=== PATIENT | male | born 1945 | race Caucasian/White ===

== ENCOUNTER 2017-12-30 15:02 | Inpatient (IN) | payer OTHER ==
[2017-12-30 16:35] LABS: ABNORMAL IP MESSAGE 1; HEMATOCRIT 26.2 % (42.0-52.0); HEMOGLOBIN 8.7 g/dl (14.0-18.0); MEAN CORPUSCULAR HEMOGLOBIN 31.9 pg (29.0-33.0); MEAN CORPUSCULAR HGB CONC 33.2 g/dl (32.0-37.0); POSITIVE DIFF @See below; RED BLOOD COUNT 2.73 10^6/ul (4.70-6.10)
[2017-12-30 16:35] LABS: WHITE BLOOD COUNT 13.3 10^3/ul (4.8-10.8)
[2017-12-30 16:41] LABS: ADD MAN DIFF? YES; PLATELET COUNT 12 10^3/UL (140-415)
[2017-12-30] MEDS: CEFEPIME 2GM/50 ML (PMX) 50 ML IVPB (16:41)
[2017-12-30 16:42] LABS: PATH REVIEW? YES
[2017-12-30] MEDS: ACETAMINOPHEN 325 MG TAB PO (16:42)
[2017-12-30] MEDS: SODIUM CHLORIDE 0.9% 1L BAG IV* (16:42)
[2017-12-30 16:52] LABS: ALANINE AMINOTRANSFERASE 73 IU/L (13-69); ALBUMIN 2.6 g/dl (3.3-4.9); ALBUMIN/GLOBULIN RATIO 0.66; ALKALINE PHOSPHATASE 249 IU/L (42-121); ANION GAP 15 (8-16); ASPARTATE AMINO TRANSFERASE 73 IU/L (15-46); BILIRUBIN,INDIRECT 1.1 mg/dl (0-1.1); BILIRUBIN,TOTAL 1.3 mg/dl (0.2-1.3); BLOOD UREA NITROGEN 18 mg/dl (7-20); CALCIUM 8.4 mg/dl (8.4-10.2); CARBON DIOXIDE 28 mmol/L (21-31); CHLORIDE 97 mmol/L (97-110); CREATININE 0.56 mg/dl (0.61-1.24); GLUCOSE 102 mg/dl (70-220); SODIUM 136 mmol/L (135-144); TOTAL PROTEIN 6.5 g/dl (6.1-8.1)
[2017-12-30 16:54] LABS: PROTIME 14.4 Sec (11.9-14.9); PT RATIO 1.1
[2017-12-30 16:55] LABS: PARTIAL THROMBOPLASTIN TIME 31.2 Sec (25.0-35.0)
[2017-12-30 17:03] LABS: TROPONIN-I < 0.012 ng/ml (0.000-0.120)
[2017-12-30] MEDS: VANCOMYCIN 1 GM (PMX) 250 ML IVPB (17:03)
[2017-12-30 17:14] LABS: LACTIC ACID 3.7 mmol/L (0.5-2.0)
[2017-12-30 17:19] LABS: ANISOCYTOSIS 1+ (0-0); BAND NEUTROPHILS #M 3.7 10^3/ul (0.0-0.6); BAND NEUTROPHILS % (M) 28 % (0-4); BASOPHIL #M 0.2 10^3/ul (0.0-0.0); BASOPHILS % (M) 2 % (0-2); EOSINOPHILS % (M) 2 % (0-7); MONOCYTE #M 0.5 10^3/ul (0.3-0.9); MONOCYTES % (M) 4 % (0-11); PLATELET ESTIMATE SIG DECREASED; POIKILOCYTOSIS 3+ (0-0); SEGMENTED NEUTROPHILS (M) % 64 % (39-77); SMUDGE%M 8 % (0-0)
[2017-12-30] MEDS ORDERED: ONDANSETRON 4 MG INJ IV (18:00)
[2017-12-30] MEDS ORDERED: ACETAMINOPHEN 325 MG TAB PO ×2 (18:00→20:00)
[2017-12-30] MEDS: SOD CHLORIDE 0.9% 1,000 ML IV ×2 (18:39→20:09)
[2017-12-30] MEDS: NORepinephrine 8MG/250 ML (PMX 250 ML IV (19:25)
[2017-12-30] MEDS ORDERED: DOCUSATE SODIUM 100 MG CAP PO (20:00)
[2017-12-30] MEDS ORDERED: morphine 2 MG INJ IV (20:00)
[2017-12-30] MEDS ORDERED: VANCOMYCIN IV PER PHARMACY XX (20:00)
[2017-12-30] MEDS ORDERED: HYDROCODONE/APAP (5/325) TAB PO (20:00)
[2017-12-30] MEDS: HYDROmorphONE 2 MG/ML SYG IV (20:37)
[2017-12-30] MEDS ORDERED: NORepinephrine 8MG/250 ML (PMX 250 ML IV (21:30)
[2017-12-30 23:45] LABS: LACTIC ACID 1.4 mmol/L (0.5-2.0)
[2017-12-31] MEDS: PIPER-TAZO 3.375 GM IV (PMX) 100 ML IVPB ×4 (00:13→18:37)
[2017-12-31] MEDS: SOD CHLORIDE 0.9% 1,000 ML IV ×2 (05:21→17:06)
[2017-12-31] MEDS: VANCOMYCIN 500MG/NS (PMX) 100 ML IVPB ×2 (05:22→17:24)
[2017-12-31 06:34] LABS: ABNORMAL IP MESSAGE 1; HEMATOCRIT 22.7 % (42.0-52.0); HEMOGLOBIN 7.3 g/dl (14.0-18.0); MEAN CORPUSCULAR HEMOGLOBIN 31.2 pg (29.0-33.0); MEAN CORPUSCULAR HGB CONC 32.2 g/dl (32.0-37.0); MEAN PLATELET VOLUME 10.5 fl (7.4-10.4); POSITIVE DIFF @See below; RED BLOOD COUNT 2.34 10^6/ul (4.70-6.10); RED CELL DISTRIBUTION WIDTH 17.9 % (11.5-14.5)
[2017-12-31 06:34] LABS: WHITE BLOOD COUNT 10.6 10^3/ul (4.8-10.8)
[2017-12-31 06:49] LABS: LACTIC ACID 1.5 mmol/L (0.5-2.0)
[2017-12-31 06:55] LABS: PLATELET COUNT 3 10^3/UL (140-415)
[2017-12-31 06:56] LABS: ADD MAN DIFF? YES
[2017-12-31 07:09] LABS: ANION GAP 11 (8-16); BLOOD UREA NITROGEN 14 mg/dl (7-20); CALCIUM 7.3 mg/dl (8.4-10.2); CARBON DIOXIDE 27 mmol/L (21-31); CHLORIDE 105 mmol/L (97-110); CREATININE 0.48 mg/dl (0.61-1.24); GLUCOSE 81 mg/dl (70-220); PHOSPHORUS 3.6 mg/dl (2.5-4.9); POTASSIUM 3.8 mmol/L (3.5-5.1); SODIUM 139 mmol/L (135-144)
[2017-12-31 08:52] LABS: HEMOGLOBIN A1C 5.7 % (0-5.9)
[2017-12-31 10:07] LABS: ANISOCYTOSIS 1+ (0-0); BAND NEUTROPHILS #M 3.7 10^3/ul (0.0-0.6); BAND NEUTROPHILS % (M) 35 % (0-4); LYMPHOCYTES #M 0.2 10^3/ul (0.8-2.9); LYMPHOCYTES % (M) 2 % (15-51); MONOCYTE #M 0.3 10^3/ul (0.3-0.9); MONOCYTES % (M) 3 % (0-11); PLATELET ESTIMATE SIG DECREASED; POLYCHROMASIA 2+ (0-0); SEG NEUT #M 6.8 10^3/ul (1.6-7.5); SEGMENTED NEUTROPHILS (M) % 60 % (39-77)
[2017-12-31 13:56] LABS: IMMEDIATE SPIN CROSSMATCH 1 4
[2017-12-31] MEDS: PANTOPRAZOLE IV 80 MG in SOD CHLORIDE 0.9% 100 ML IV ×3 (14:12→19:43)
[2017-12-31] MEDS: PROMETHAZINE/CODEINE 5ML CUP PO (18:36)
[2018-01-01] MEDS: PANTOPRAZOLE IV 80 MG in SOD CHLORIDE 0.9% 100 ML IV (00:30)
[2018-01-01] MEDS: SOD CHLORIDE 0.9% 1,000 ML IV ×2 (01:01→06:27)
[2018-01-01] MEDS: PIPER-TAZO 3.375 GM IV (PMX) 100 ML IVPB ×4 (05:00→17:27)
[2018-01-01 05:16] LABS: WHITE BLOOD COUNT 9.5 10^3/ul (4.8-10.8)
[2018-01-01 05:16] LABS: ABNORMAL IP MESSAGE 1; HEMATOCRIT 25.7 % (42.0-52.0); HEMOGLOBIN 8.6 g/dl (14.0-18.0); MEAN CORPUSCULAR HEMOGLOBIN 31.3 pg (29.0-33.0); MEAN CORPUSCULAR HGB CONC 33.5 g/dl (32.0-37.0); MEAN CORPUSCULAR VOLUME 93.5 fl (82.0-101.0); MEAN PLATELET VOLUME 12.7 fl (7.4-10.4); POSITIVE DIFF @See below; RED BLOOD COUNT 2.75 10^6/ul (4.70-6.10); RED CELL DISTRIBUTION WIDTH 18.1 % (11.5-14.5)
[2018-01-01 05:32] LABS: ANION GAP 11 (8-16); BLOOD UREA NITROGEN 14 mg/dl (7-20); CALCIUM 7.6 mg/dl (8.4-10.2); CARBON DIOXIDE 27 mmol/L (21-31); CHLORIDE 107 mmol/L (97-110); CREATININE 0.51 mg/dl (0.61-1.24); GLUCOSE 76 mg/dl (70-220); POTASSIUM 3.1 mmol/L (3.5-5.1); SODIUM 142 mmol/L (135-144)
[2018-01-01 05:46] LABS: VANCOMYCIN,TROUGH < 5.0 ug/ml (10.0-20.0)
[2018-01-01 06:06] LABS: HEPATITIS B SURFACE ANTIGEN NEGATIVE (NEGATIVE)
[2018-01-01 06:23] LABS: HEPATITIS B SURFACE ANTIBODY NEGATIVE (NEGATIVE)
[2018-01-01 06:24] LABS: HEPATITIS B CORE ANTIBODY NEGATIVE (NEGATIVE); HEPATITIS C VIRAL ANTIBODY NEGATIVE (NEGATIVE)
[2018-01-01] MEDS: VANCOMYCIN 1 GM 250 ML IVPB ×2 (06:27→17:33)
[2018-01-01 06:36] LABS: ADD MAN DIFF? YES; PLATELET COUNT 26 10^3/UL (140-415)
[2018-01-01 08:01] LABS: BAND NEUTROPHILS #M 1.9 10^3/ul (0.0-0.6); BAND NEUTROPHILS % (M) 21 % (0-4); EOSINOPHILS % (M) 1 % (0-7); LYMPHOCYTES % (M) 1 % (15-51); MONOCYTE #M 0.2 10^3/ul (0.3-0.9); MONOCYTES % (M) 3 % (0-11); SEG NEUT #M 7.2 10^3/ul (1.6-7.5); SEGMENTED NEUTROPHILS (M) % 74 % (39-77)
[2018-01-01 08:10] LABS: GAMMA GLUTAMYL TRANSPEPTIDASE 56 IU/L (0-50)
[2018-01-01] MEDS: PROMETHAZINE/CODEINE 5ML CUP PO (09:52)
[2018-01-01] MEDS ORDERED: ACYCLOVIR (5 MG/ML) IV SYG IV* (11:00)
[2018-01-01] MEDS: POTASSIUM CHLORIDE 100 ML IVPB ×2 (11:29→14:08)
[2018-01-01] MEDS: ACYCLOVIR IVPB (13:25)
[2018-01-01] MEDS: SOD CHLORIDE 0.9% IVPB (13:25)
[2018-01-01] MEDS: PANTOPRAZOLE 40 MG INJ IV (17:27)
[2018-01-01] MEDS ORDERED: SOD CHLORIDE 0.9% IVPB (22:00)
[2018-01-01] MEDS ORDERED: ACYCLOVIR IVPB (22:00)
[2018-01-02] MEDS: PIPER-TAZO 3.375 GM IV (PMX) 100 ML IVPB ×5 (00:43→23:35)
[2018-01-02 05:27] LABS: ABNORMAL IP MESSAGE 1; HEMATOCRIT 25.6 % (42.0-52.0); HEMOGLOBIN 8.6 g/dl (14.0-18.0); MEAN CORPUSCULAR HEMOGLOBIN 31.2 pg (29.0-33.0); MEAN CORPUSCULAR HGB CONC 33.6 g/dl (32.0-37.0); MEAN CORPUSCULAR VOLUME 92.8 fl (82.0-101.0); POSITIVE DIFF @See below; RED BLOOD COUNT 2.76 10^6/ul (4.70-6.10)
[2018-01-02] MEDS: PANTOPRAZOLE 40 MG INJ IV ×2 (05:43→18:10)
[2018-01-02 05:59] LABS: ANION GAP 9 (8-16); BLOOD UREA NITROGEN 12 mg/dl (7-20); CALCIUM 7.6 mg/dl (8.4-10.2); CARBON DIOXIDE 31 mmol/L (21-31); CHLORIDE 104 mmol/L (97-110); CREATININE 0.48 mg/dl (0.61-1.24); GLUCOSE 102 mg/dl (70-220); SODIUM 141 mmol/L (135-144)
[2018-01-02] MEDS: VANCOMYCIN 1 GM 250 ML IVPB ×2 (06:23→19:09)
[2018-01-02 06:26] LABS: POTASSIUM 2.7 mmol/L (3.5-5.1)
[2018-01-02 06:59] LABS: ADD MAN DIFF? YES; PLATELET COUNT 19 10^3/UL (140-415)
[2018-01-02] MEDS: SOD CHLORIDE 0.9% 250 ML IV* (07:04)
[2018-01-02] MEDS: POTASSIUM CHLORIDE 100 ML IVPB ×2 (08:43→11:22)
[2018-01-02] MEDS: POTASSIUM CHLORIDE (SR) 20 MEQ TAB PO (08:43)
[2018-01-02 09:06] LABS: ANISOCYTOSIS 1+ (0-0); BAND NEUTROPHILS #M 2.9 10^3/ul (0.0-0.6); BAND NEUTROPHILS % (M) 37 % (0-4); ERYTHROBLAST% (NRBC) (M) 1 % (0-0); MONOCYTE #M 0.7 10^3/ul (0.3-0.9); MONOCYTES % (M) 9 % (0-11); PLATELET ESTIMATE SIG DECREASED; REACTIVE LYMPHOCYTES #M 0.1 10^3/ul (0.0-0.0); REACTIVE LYMPHOCYTES% (M) 2 % (0-0); SEG NEUT #M 4.4 10^3/ul (1.6-7.5); SEGMENTED NEUTROPHILS (M) % 52 % (39-77); SMUDGE%M 8 % (0-0)
[2018-01-02] MEDS: PROMETHAZINE/CODEINE 5ML CUP PO (13:45)
[2018-01-02] MEDS: SOD CHLORIDE 0.9% IVPB (14:27)
[2018-01-02] MEDS: ACYCLOVIR IVPB (14:27)
[2018-01-02 15:27] LABS: ANION GAP 9 (8-16); BLOOD UREA NITROGEN 12 mg/dl (7-20); CALCIUM 7.6 mg/dl (8.4-10.2); CARBON DIOXIDE 30 mmol/L (21-31); CHLORIDE 104 mmol/L (97-110); CREATININE 0.48 mg/dl (0.61-1.24); GLUCOSE 116 mg/dl (70-220); POTASSIUM 3.3 mmol/L (3.5-5.1); SODIUM 140 mmol/L (135-144)
[2018-01-02] MEDS: SOD CHLORIDE 0.9% 100 ML (16:34)
[2018-01-02] MEDS: IOHEXOL 300MG/ML 150 ML BTL (16:35)
[2018-01-02 17:10] LABS: TYPE AND SCREEN 1
[2018-01-02] MEDS: ONDANSETRON 4 MG INJ IV (21:31)
[2018-01-03 05:17] LABS: VANCOMYCIN,TROUGH 6.5 ug/ml (10.0-20.0)
[2018-01-03] MEDS: PIPER-TAZO 3.375 GM IV (PMX) 100 ML IVPB ×4 (05:42→23:09)
[2018-01-03] MEDS: PANTOPRAZOLE 40 MG INJ IV ×2 (05:42→18:16)
[2018-01-03 07:12] LABS: ANION GAP 10 (8-16); BLOOD UREA NITROGEN 12 mg/dl (7-20); CALCIUM 7.5 mg/dl (8.4-10.2); CARBON DIOXIDE 32 mmol/L (21-31); CHLORIDE 102 mmol/L (97-110); CREATININE 0.44 mg/dl (0.61-1.24); GLUCOSE 108 mg/dl (70-220); MAGNESIUM 2.1 mg/dl (1.7-2.5); SODIUM 141 mmol/L (135-144)
[2018-01-03 07:19] LABS: POTASSIUM 2.9 mmol/L (3.5-5.1)
[2018-01-03] MEDS: VANCOMYCIN 1 GM 250 ML IVPB (08:08)
[2018-01-03] MEDS: POTASSIUM CHLORIDE (SR) 20 MEQ TAB PO ×2 (08:08→20:08)
[2018-01-03 10:09] LABS: WHITE BLOOD COUNT 6.3 10^3/ul (4.8-10.8)
[2018-01-03 10:09] LABS: ABNORMAL IP MESSAGE 1; HEMATOCRIT 24.8 % (42.0-52.0); HEMOGLOBIN 8.2 g/dl (14.0-18.0); MEAN CORPUSCULAR HEMOGLOBIN 31.3 pg (29.0-33.0); MEAN CORPUSCULAR HGB CONC 33.1 g/dl (32.0-37.0); MEAN CORPUSCULAR VOLUME 94.7 fl (82.0-101.0); POSITIVE DIFF @See below; RED BLOOD COUNT 2.62 10^6/ul (4.70-6.10); RED CELL DISTRIBUTION WIDTH 17.7 % (11.5-14.5)
[2018-01-03 10:15] LABS: PLATELET COUNT 21 10^3/UL (140-415)
[2018-01-03 10:16] LABS: ADD MAN DIFF? YES
[2018-01-03] MEDS: SOD CHLORIDE 0.9% IVPB (11:08)
[2018-01-03] MEDS: ACYCLOVIR IVPB (11:08)
[2018-01-03 11:33] LABS: BAND NEUTROPHILS % (M) 32 % (0-4); BURR CELLS 1+ (0-0); EOSINOPHILS % (M) 3 % (0-7); LYMPHOCYTES #M 0.1 10^3/ul (0.8-2.9); LYMPHOCYTES % (M) 3 % (15-51); MONOCYTES % (M) 1 % (0-11); PLATELET ESTIMATE SIG DECREASED; POIKILOCYTOSIS 1+ (0-0); POLYCHROMASIA 1+ (0-0); SEGMENTED NEUTROPHILS (M) % 61 % (39-77); SMUDGE%M 39 % (0-0)
[2018-01-03 14:59] LABS: ANION GAP 10 (8-16); BLOOD UREA NITROGEN 13 mg/dl (7-20); CALCIUM 7.6 mg/dl (8.4-10.2); CARBON DIOXIDE 32 mmol/L (21-31); CHLORIDE 99 mmol/L (97-110); CREATININE 0.51 mg/dl (0.61-1.24); GLUCOSE 120 mg/dl (70-220); SODIUM 138 mmol/L (135-144)
[2018-01-03] MEDS: VANCOMYCIN 750 MG in SOD CHLORIDE 0.9% 150 ML IVPB (16:51)
[2018-01-04] MEDS: VANCOMYCIN 750 MG in SOD CHLORIDE 0.9% 150 ML IVPB ×2 (00:07→08:15)
[2018-01-04] MEDS: PANTOPRAZOLE 40 MG INJ IV ×2 (05:31→19:06)
[2018-01-04] MEDS: PIPER-TAZO 3.375 GM IV (PMX) 100 ML IVPB ×3 (05:31→19:06)
[2018-01-04] MEDS: SOD CHLORIDE 0.9% IVPB (12:44)
[2018-01-04] MEDS: ACYCLOVIR IVPB (12:44)
[2018-01-04 16:31] LABS: ADD MAN DIFF? NO
[2018-01-04 16:35] LABS: ABNORMAL IP MESSAGE 1; HEMOGLOBIN 7.5 g/dl (14.0-18.0); MEAN CORPUSCULAR HGB CONC 32.6 g/dl (32.0-37.0); POSITIVE DIFF @See below; RED BLOOD COUNT 2.42 10^6/ul (4.70-6.10); RED CELL DISTRIBUTION WIDTH 17.4 % (11.5-14.5)
[2018-01-04 16:35] LABS: WHITE BLOOD COUNT 5.3 10^3/ul (4.8-10.8)
[2018-01-04 16:45] LABS: PLATELET COUNT 18 10^3/UL (140-415)
[2018-01-04 16:56] LABS: ANION GAP 8 (8-16); BLOOD UREA NITROGEN 12 mg/dl (7-20); CALCIUM 7.4 mg/dl (8.4-10.2); CARBON DIOXIDE 32 mmol/L (21-31); CHLORIDE 99 mmol/L (97-110); CREATININE 0.45 mg/dl (0.61-1.24); GLUCOSE 111 mg/dl (70-220); SODIUM 136 mmol/L (135-144)
[2018-01-04 17:01] LABS: POTASSIUM 2.9 mmol/L (3.5-5.1)
[2018-01-04 18:12] LABS: ANISOCYTOSIS 1+ (0-0); BAND NEUTROPHILS #M 0.3 10^3/ul (0.0-0.6); BAND NEUTROPHILS % (M) 6 % (0-4); EOSINOPHILS % (M) 4 % (0-7); GIANT THROMBO% (M) 1 % (0-0); LYMPHOCYTES #M 0.1 10^3/ul (0.8-2.9); LYMPHOCYTES % (M) 3 % (15-51); MICROCYTOSIS 1+ (0-0); MONOCYTE #M 0.3 10^3/ul (0.3-0.9); MONOCYTES % (M) 6 % (0-11); SEG NEUT #M 4.3 10^3/ul (1.6-7.5); SEGMENTED NEUTROPHILS (M) % 81 % (39-77); SMUDGE%M 20 % (0-0)
[2018-01-04] MEDS: POTASSIUM CHLORIDE 20 MEQ POWDER FOR ORAL SOLN PO ×2 (19:06→22:57)
[2018-01-05] MEDS: PIPER-TAZO 3.375 GM IV (PMX) 100 ML IVPB ×3 (00:27→12:11)
[2018-01-05 05:57] LABS: WHITE BLOOD COUNT 6.4 10^3/ul (4.8-10.8)
[2018-01-05 05:57] LABS: ABNORMAL IP MESSAGE 1; HEMATOCRIT 23.7 % (42.0-52.0); HEMOGLOBIN 7.7 g/dl (14.0-18.0); MEAN CORPUSCULAR HEMOGLOBIN 30.8 pg (29.0-33.0); MEAN CORPUSCULAR HGB CONC 32.5 g/dl (32.0-37.0); MEAN CORPUSCULAR VOLUME 94.8 fl (82.0-101.0); MEAN PLATELET VOLUME 11.6 fl (7.4-10.4); POSITIVE DIFF @See below; RED CELL DISTRIBUTION WIDTH 17.3 % (11.5-14.5)
[2018-01-05 06:03] LABS: ADD MAN DIFF? YES; PLATELET COUNT 22 10^3/UL (140-415)
[2018-01-05 06:41] LABS: ANION GAP 9 (8-16); BLOOD UREA NITROGEN 11 mg/dl (7-20); CALCIUM 7.5 mg/dl (8.4-10.2); CARBON DIOXIDE 31 mmol/L (21-31); CHLORIDE 100 mmol/L (97-110); CREATININE 0.43 mg/dl (0.61-1.24); GLUCOSE 103 mg/dl (70-220); POTASSIUM 3.7 mmol/L (3.5-5.1); SODIUM 136 mmol/L (135-144)
[2018-01-05] MEDS: PANTOPRAZOLE 40 MG INJ IV (06:49)
[2018-01-05 07:53] LABS: ANISOCYTOSIS 1+ (0-0); BAND NEUTROPHILS #M 1.3 10^3/ul (0.0-0.6); BAND NEUTROPHILS % (M) 21 % (0-4); EOSINOPHILS % (M) 4 % (0-7); LYMPHOCYTES #M 0.1 10^3/ul (0.8-2.9); LYMPHOCYTES % (M) 2 % (15-51); MONOCYTE #M 0.1 10^3/ul (0.3-0.9); MONOCYTES % (M) 2 % (0-11); PLATELET ESTIMATE SIG DECREASED; POIKILOCYTOSIS 1+ (0-0); REACTIVE LYMPHOCYTES% (M) 1 % (0-0); SEG NEUT #M 4.6 10^3/ul (1.6-7.5); SEGMENTED NEUTROPHILS (M) % 70 % (39-77); SMUDGE%M 46 % (0-0)
[2018-01-05 12:46] LABS: OCCULT BLOOD STOOL NEGATIVE (NEGATIVE)
[2018-01-07] MEDS: MAGNESIUM HYDROXIDE 30ML CUP PO (10:02)
[2018-01-07] MEDS ORDERED: GUAIFENESIN 20 MG/ML 5ML CUP PO (14:30)
[2018-01-11] MEDS: NACL 0.9% 3 ML SYG IV (08:48)
== END 2018-01-13 00:15 | disposition hospice, inpatient (51) | DRG 871 ==
LOC: MS1 01-01 16:05 → E/R 15:02 → ICU 17:48
PROC: 06HM33Z Insertion of Infusion Device into Right Femoral Vein, Percutaneous Approach (ICD-10-PCS; principal; 2017-12-30)
PROC: B54BZZA Ultrasonography of Right Lower Extremity Veins, Guidance (ICD-10-PCS; 2017-12-30)
PROC: 30233R1 Transfusion of Nonautologous Platelets into Peripheral Vein, Percutaneous Approach (ICD-10-PCS; 2017-12-31)
PROC: 30233N1 Transfusion of Nonautologous Red Blood Cells into Peripheral Vein, Percutaneous Approach (ICD-10-PCS; 2017-12-31)
DX: A41.9 Sepsis, unspecified organism (principal); R65.21 Severe sepsis with septic shock; J18.9 Pneumonia, unspecified organism; C34.90 Malignant neoplasm of unspecified part of unspecified bronchus or lung; K92.2 Gastrointestinal hemorrhage, unspecified; R04.2 Hemoptysis; B00.9 Herpesviral infection, unspecified; D64.81 Anemia due to antineoplastic chemotherapy; D63.0 Anemia in neoplastic disease; D69.59 Other secondary thrombocytopenia; T45.1X5A Adverse effect of antineoplastic and immunosuppressive drugs, initial encounter; R63.4 Abnormal weight loss; Z68.21 Body mass index [BMI] 21.0-21.9, adult; Z66 Do not resuscitate; Z87.891 Personal history of nicotine dependence
CPT/HCPCS: 36415; 36430; 71045; 71260; 76705; 76937; 80048; 80053; 80202; 82270; 82962; 82977; 83036; 83605; 83735; 84100; 84484; 85025; 85610; 85730; 86644; 86704; 86706; 86708; 86709; 86803; 86850; 86900; 86901; 86920; 86945; 87040; 87081; 87340; 93005; 96365; 96368; 99291-25